=== PATIENT | male | born 1960 | race Caucasian/White ===

== ENCOUNTER → 2017-01-16 | Day surgery (SDC) | payer OTHER ==
[~2017-01-16] MED LIST: ALLO300T; CARV12.52; CEPH-264 PO; FURO40TA4; IPRATRPIUM/ALBUTEROL 0.5/2.5MG 3 ML NEBU. NEB ONE; IV RINGERS,LACTATED 1000ML 1,000 ML IV ONE; LIDOCAINE 2% PF Vial for OR 5 ML VIAL. ONE; METO5TAB4; OMEP40CA5; OXYC1TAB9; POTA20TA84; PROAIR HFA8.5 GM INH; PROPOFOL 20 ML IV ONE; WARF5TAB7
[2017-01-16 07:53] LABS: INR 1.5 (0.8-1.1); PROTHROMBIN TIME PATIENT 17.5 SEC (11.7-14.0)
[2017-01-16 09:20] VITALS: BP 112/59
--- NOTE | 2017-01-17 17:01 | PATHOLOGY ---
PATHOLOGY REPORT * * * * * * * * FINAL DIAGNOSIS: A. Gastric biopsy, antrum: - Chronic gastritis, mild to moderate. B. 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 COMMENT: Sections of the gastric biopsy reveal gastric antral mucosa showing congestion and mild to focal moderate chronic inflammation. An immunoperoxidase stain for Helicobacter is obtained. No Helicobacter organisms are identified. Sections of the distal esophageal biopsy reveal segments of columnar-lined mucosa showing mild chronic inflammation and intestinal metaplasia with goblet cells consistent with Hutchison's change. There is focal glandular atypia which is indefinite for dysplasia. There is no evidence of malignancy. (JPM:mgr; 01/17/2017) Special Stain Performed: Immunoperoxidase stain for Helicobacter (A1) REPORT ELECTRONICALLY SIGNED BY: Vidal Alonzo M.D. DATE/TIME: 01/17/2017 17:00 * * * * * * * * GROSS PATHOLOGY: A. Received in formalin labeled "Santos Shaw, antrum-gastritis," are two segments of harris soft tissue each measuring 0.3 cm in maximum dimension. The specimen is submitted entirely in cassette A1. B. Received in formalin labeled "biopsy distal esophagus," is a segment of harris soft tissue measuring 0.2 cm in maximum dimension. The specimen is submitted entirely in cassette B1. (JPM; 01/16/17) INITIAL CPT CODE(S): A; 00276, 21082 B; 40520 Professional services performed by [facility] at [address] [address] Technical services performed by [facility] at [address] [place] [address], [facility] [address] [address]. SPECIMEN(S) RECEIVED: A.Biopsy antrum gastritis B.Biopsy distal esophagus CLINICAL HISTORY: Epigastric pain, GERD; reflux esophagitis, gastritis PATIENT: SANTOS SHAW /AGE: 802/15/1960 (Age: 56) PATIENT #: [id number] ALT CASE #: SPECIMEN COLLECTION DATE: 01/16/2017 SPECIMEN RECEIVED DATE: 01/16/2017 [facility] - [address] [place] [address] - PHONE: [phone] * * * END OF REPORT * * *
== END | disposition home or self-care (01) ==
LOC: ENDOS 06:56
PROVIDERS: ATTEND Internal Medicine Gastroenterology
DX: K29.00 Acute gastritis without bleeding (principal); K22.8 Other specified diseases of esophagus; K44.9 Diaphragmatic hernia without obstruction or gangrene; K74.60 Unspecified cirrhosis of liver; I10 Essential (primary) hypertension; J44.9 Chronic obstructive pulmonary disease, unspecified; J45.909 Unspecified asthma, uncomplicated; F41.9 Anxiety disorder, unspecified; F32.9 Major depressive disorder, single episode, unspecified; Z72.89 Other problems related to lifestyle; Z87.39 Personal history of other diseases of the musculoskeletal system and connective tissue; Z86.14 Personal history of Methicillin resistant Staphylococcus aureus infection; Z91.048 Other nonmedicinal substance allergy status
CPT/HCPCS: 36415; 43239; 85610; 88305; 88342; 94640; J2001; J2704

== ENCOUNTER → 2017-04-17 | Day surgery (SDC) | payer OTHER ==
[~2017-04-17] MED LIST changes: +HYDROmorphone 2 MG/ML VIAL IV PRN; -IPRATRPIUM/ALBUTEROL 0.5/2.5MG 3 ML NEBU. NEB ONE; -IV RINGERS,LACTATED 1000ML 1,000 ML IV ONE; +IV RINGERS,LACTATED 1000ML 1,000 ML IV SCH; +LIDOCAINE 1% PF 2 ML VIAL. ID PRN; +MORPHINE SULFATE 2 MG/ML DISP.SYRIN. IV PRN; +ONDANSETRON PF 4 MG/2 ML VIAL. IV PRN; +PROCHLORPERAZINE 10 MG/2 ML VIAL. IV PRN; -PROPOFOL 20 ML IV ONE; +PROPOFOL 40 ML IV ONE; +fentaNYL PF VIAL 100 MCG/2 ML VIAL IV PRN
[2017-04-17 09:23] VITALS: BP 111/62
--- NOTE | 2017-04-18 16:47 | PATHOLOGY ---
PATHOLOGY REPORT * * * * * * * * FINAL DIAGNOSIS: A. Colon biopsy, transverse colon polyp: - Tubular adenoma. B. Colon biopsy, descending colon polyp: - Tubular adenoma. C. Colon biopsy, sigmoid polyp: - Tubular adenoma. D. Colorectal biopsy, rectal polyp: - Hyperplastic polyp. COMMENT: There is no high grade dysplasia or evidence of malignancy. (JPM:mml; 04/18/2017) REPORT ELECTRONICALLY SIGNED BY: Vidal Alonzo M.D. DATE/TIME: 04/18/2017 16:46 * * * * * * * * GROSS PATHOLOGY: A. Received in formalin labeled "Santos Rebollar, transverse colon polyp," are 2 segments of harris soft tissue measuring 0.6 x 0.3 x 0.3 cm in aggregate dimensions and ranging from 0.3 to 0.3 cm in maximum dimension. The specimen is submitted entirely in cassette A1. B. Received in formalin labeled "Santos Rebollar, descending colon polyp," is a 0.6 x 0.4 x 0.4 cm polypoid piece of harris soft tissue. The margin is inked and the tissue is sectioned perpendicular to the margin and submitted in its entirety in cassette B1. C. Received in formalin labeled "Santos Rebollar, sigmoid polyp 2," are 2 segments of harris soft tissue measuring 0.7 x 0.3 x 0.3 cm in aggregate dimensions and ranging from 0.3 to 0.4 cm in maximum dimension. The specimen is submitted entirely in cassette C1. D. Received in formalin labeled "Santos Rebollar, rectum polyp," is a segment of harris soft tissue measuring 0.3 cm in maximum dimension. The specimen is submitted entirely in cassette D1. (TSD; 04/17/2017) INITIAL CPT CODE(S): A; 92252 B; 76327 C; 74293 D; 73588 Professional services performed by [facility] [address] [place] [id number] Technical services performed by [facility] at [address] [place] [address], [address], [place] [address]. SPECIMEN(S) RECEIVED: A.Transverse colon polyp B.Descending colon polyp C.Sigmoid polyp D.Rectal polyp CLINICAL HISTORY: Screening PATIENT: SANTOS REBOLLAR /AGE: 802/15/1960 (Age: 57) PATIENT #: [id number] ALT CASE #: SPECIMEN COLLECTION DATE: 04/17/2017 SPECIMEN RECEIVED DATE: 04/17/2017 [facility] - [address] [place] [address] - PHONE: [phone] * * * END OF REPORT * * *
== END | disposition home or self-care (01) ==
LOC: ENDOS 07:22
PROVIDERS: ATTEND Internal Medicine Gastroenterology
DX: Z12.11 Encounter for screening for malignant neoplasm of colon (principal); K64.0 First degree hemorrhoids; K57.30 Diverticulosis of large intestine without perforation or abscess without bleeding; J44.9 Chronic obstructive pulmonary disease, unspecified; I11.0 Hypertensive heart disease with heart failure; I50.9 Heart failure, unspecified; M19.91 Primary osteoarthritis, unspecified site; F41.9 Anxiety disorder, unspecified; F32.9 Major depressive disorder, single episode, unspecified; F17.200 Nicotine dependence, unspecified, uncomplicated; Z80.0 Family history of malignant neoplasm of digestive organs; Z87.39 Personal history of other diseases of the musculoskeletal system and connective tissue; Z72.0 Tobacco use; Z91.048 Other nonmedicinal substance allergy status; Z86.718 Personal history of other venous thrombosis and embolism; Z86.14 Personal history of Methicillin resistant Staphylococcus aureus infection
CPT/HCPCS: 45378; 88305; J2704; J2001